=== PATIENT | female | born 1975 | race Caucasian/White ===

== ENCOUNTER 2017-07-18 15:59 | Emergency (ER) | payer OTHER ==
--- NOTE | 2017-07-18 16:44 | ERPHSYRPT ---
- History of Present Illness Time Seen by Provider: 07/18/17 16:36 Source: patient Exam Limitations: no limitations Patient Subjective Stated Complaint: fell walking her dog yesterday, fell against landscaping wood when dog jumped on her. Triage Nursing Assessment: pt tense, taking short breaths, stated its hard to get deep air in, c/o right rib pain under breast. no bruising noted. tender to area. denies hitting head, LOC or other injuries Physician History: 42-year-old white female arrives with complaint of pain in the right ribs symptoms since yesterday. Patient states she fell striking her right ribs on landscaping timber she has pain on her right anterior lateral chest worse with breathing. Past medical history includes seizures, Past surgical history includes , uterine ablation Timing/Duration: yesterday Severity: moderate Modifying Factors: Improves With: other (pain with movement and deep breathing) Associated Symptoms: chest pain (right anterior lateral rib pain), No denies symptoms, No nausea, No vomiting, No abdominal pain, No shortness of breath, No heartburn, No diaphoresis, No cough, No chills Allergies/Adverse Reactions: No Known Drug Allergies Allergy (Verified 10/14/14 23:44) Home Medications: Phenytoin Sodium Extended [Dilantin] 2 cap PO BID 08/23/15 [History] Hx Tetanus, Diphtheria Vaccination/Date Given: Yes Hx Influenza Vaccination/Date Given: Yes Hx Pneumococcal Vaccination/Date Given: No Immunizations Up to Date: Yes - Review of Systems Constitutional: No Fever, No Chills Eyes: No Symptoms Ears, Nose, & Throat: No Symptoms Respiratory: Other (ppain with deep breathing right ribsanteriorly) Cardiac: Chest Pain (right rib pain anteriorly with breathing and movement) Abdominal/Gastrointestinal: No Abdominal Pain, No Nausea, No Vomiting, No Diarrhea Genitourinary Symptoms: No Dysuria Musculoskeletal: Other (right rib pain), No Back Pain, No Neck Pain Skin: No Rash Neurological: No Symptoms Psychological: No Symptoms Endocrine: No Symptoms All Other Systems: Reviewed and Negative - Past Medical History Pertinent Past Medical History: Yes Neurological History: No Pertinent History ENT History: No Pertinent History Cardiac History: No Pertinent History Respiratory History: No Pertinent History Endocrine Medical History: No Pertinent History Musculoskeletal History: Other GI Medical History: No Pertinent History History: No Pertinent History Psycho-Social History: No Pertinent History Female Reproductive Disorders: No Pertinent History - Past Surgical History Past Surgical History: Yes Neuro Surgical History: No Pertinent History Cardiac: No Pertinent History Respiratory: No Pertinent History Gastrointestinal: No Pertinent History Genitourinary: No Pertinent History Musculoskeletal: Orthopedic Surgery Female Surgical History: Tubal Ligation, Section - Social History Smoking Status: Current every day smoker How long have you smoked: 15 Exposure to second hand smoke: Yes Alcohol Use: Socially Drug Use: none Patient Lives Alone: No Significant Family History: no pertinent family hx - Female History Hx Now: No - Nursing Vital Signs Nursing Vital Signs: Initial Vital Signs Temperature 98.0 F 07/18/17 16:00 Pulse Rate 91 H 07/18/17 16:00 Respiratory Rate 20 07/18/17 16:00 Blood Pressure 149/137 07/18/17 16:00 O2 Sat by Pulse Oximetry 99 07/18/17 16:00 Pain Scale Pain Intensity 9 - Physical Exam SpO2: 99 Oxygen Delivery: Room Air - Course Nursing assessment & vital signs reviewed: Yes EKG Interpreted by Me: RATE (63 bpm), Sinus Rhythm, NORMAL AXIS, Other (EKG, sinus rhythm, 63 bpm, normal axis, no acute ST or T wave changes,, normal EKG) - Radiology Exams Right Ribs X-ray Interpretation: Interpreted by me (x ray right ribs: no fractures) Chest X-ray Interpretation: Interpreted by me (no rib fractures, no pneumothorax) Ordered Tests: Active Orders 24 hr Category Date Time Status EKG-ER Only STAT Care 07/18/17 17:18 Active CHEST 1 VIEW (PORTABLE) Stat Exams 07/18/17 16:41 Taken RIBS UNILATERAL Stat Exams 07/18/17 17:20 Taken Medication Summary Discontinued Medications Generic Name Dose Route Start Last Admin Trade Name Freq PRN Reason Stop Dose Admin Ketorolac Tromethamine 60 mg 07/18/17 16:48 07/18/17 17:09 Toradol 30 Mg Injection IM 07/18/17 16:49 60 mg STAT ONE Administration Ketorolac Tromethamine Confirm 07/18/17 17:04 Toradol 30 Mg Injection Administered 07/18/17 17:05 Dose 60 mg .ROUTE .STK-MED ONE - Progress Progress: improved Progress Note: 07/18/17 17:19 42-year-old white female arrives with complaint of pain in the right ribs after falling and striking her right ribs yesterday Patient with pain with deep breathing and movement Chest x-ray on this patient no pneumothorax no pneumonias no obvious rib fractures X-ray right ribs no rib fractures noted. Patient given Toradol 60 mg IM Will check EKG Plan home Will write for a small amount of [place] patient to take Advil over-the- counter 2-3 tablets every 6 hours for up to 5 days. Cold packs to the area 07/18/17 17:39 Blood pressure is markedly improved as compared to arrival patient is stable - Departure Time of Disposition: 17:21 Departure Disposition: Home Clinical Impression: Rib pain on right side Chest wall contusion Qualifiers: Encounter type: initial encounter Laterality: right Qualified Code(s): S20.211A - Contusion of right front wall of thorax, initial encounter Condition: Fair Critical Care Time: No Referrals: DORIS CASTRO MD [Primary Care Provider] - Instructions: Bruised Rib Additional Instructions: Return home. Cold packs to area 24-48 hours. Advil 2-3 tablets orally every 6 hours with food for up to 5 days. [place] 5/325 #12 one orally every 4-6 hours as needed for pain. Follow-up with your family doctor. Return for acute distress or for severe symptoms. avoid strenuous pushing pulling lifting avoid repetitive twisting and turning. Prescriptions: Hydrocodone/Acetaminophen [B[place]vue 5-325 Tablet] 1 tab PO Q4-6HPRN PRN #12 tablet MDD 6 tablets PRN Reason: Pain
[2017-07-18] MEDS ORDERED: TORAdol 30 mg Injection ONE (17:04)
[2017-07-18] MEDS: TORAdol 30 mg Injection IM ONE (17:09)
[2017-07-18 17:15] VITALS: BP 104/69; PULSE 83
[2017-07-18 17:19] VITALS: O2SAT 99
--- NOTE | 2017-07-18 20:12 | XRAY ---
Indication: Pain following fall. Comparison: None 2 views of the right ribs demonstrates mild AC degenerative arthropathy. No other bony, articular, or soft tissue abnormalities.
--- NOTE | 2017-07-18 20:14 | XRAY ---
Indication: Right-sided pain following fall. Comparison: None Portable chest demonstrates normal heart, lungs, and bony thorax.
== END 2017-07-18 17:40 | disposition home or self-care (01) ==
LOC: ED 15:59
DX: R07.81 Pleurodynia (principal); S20.211A Contusion of right front wall of thorax, initial encounter; W01.198A Fall on same level from slipping, tripping and stumbling with subsequent striking against other object, initial encounter; Y93.K1 Activity, walking an animal
CPT/HCPCS: 71045; 71100; 93005; 96372; 99284; J1885